=== PATIENT | female | born 1990 | race African-American/Black ===

== ENCOUNTER 2018-12-06 12:29 | Emergency (ER) | payer MEDICAID ==
[~2018-12-06] VITALS: Ht 165.1 cm; Wt 85.0 kg
[2018-12-06] MEDS ORDERED: RABIES VAC,PF CHICK-EMB CELL 2.5 UNITS/ML IM ONE (14:00)
[2018-12-06] MEDS ORDERED: AMOXICILLIN/POTASSIUM CLAVULANATE 875/125MG TAB PO ONE (14:00)
[2018-12-06 14:04] LABS: CLARITY URINE CLEAR (CLEAR); COLOR URINE YELLOW (YELLOW); KETONES URINE 1+ (NEGATIVE); LEUKOCYTE ESTERASE URINE NEGATIVE (NEGATIVE); NITRITE URINE NEGATIVE (NEGATIVE); OCCULT BLOOD URINE NEGATIVE (NEGATIVE); PROTEIN URINE NEGATIVE (NEGATIVE); SPECIFIC GRAVITY URINE 1.019 (1.005-1.030); UROBILINOGEN URINE 0.2 E.U./dL (0.2-1.0)
[2018-12-06 18:15] VITALS: BP 107/70
== END 2018-12-06 21:12 | disposition short-term general hospital (02) ==
LOC: ER 12:29
DX: O99.89 Other specified diseases and conditions complicating pregnancy, childbirth and the puerperium (principal); S41.152A Open bite of left upper arm, initial encounter; L08.9 Local infection of the skin and subcutaneous tissue, unspecified; W54.0XXA Bitten by dog, initial encounter; Y93.K1 Activity, walking an animal; O26.892 Other specified pregnancy related conditions, second trimester; R10.0 Acute abdomen; Z3A.22 22 weeks gestation of pregnancy; Y92.89 Other specified places as the place of occurrence of the external cause; Z20.3 Contact with and (suspected) exposure to rabies
CPT/HCPCS: 81003; 99285; Z7610; 90675